=== PATIENT | female | born 2000 | race Caucasian/White ===

== ENCOUNTER → 2024-02-15 | Emergency (ER) | payer OTHER ==
[~2024-02-15] VITALS: Ht 167.6 cm; Wt 50.0 kg
[~2024-02-15] MED LIST: IBUP-2029 MT
[2024-02-15 13:46] VITALS: O2SAT 100
[2024-02-15 14:24] LABS: CLARITY URINE CLEAR (CLEAR); COLOR URINE YELLOW (YELLOW); GLUCOSE URINE NEGATIVE (NEGATIVE); KETONES URINE 3+ (NEGATIVE); LEUKOCYTE ESTERASE URINE NEGATIVE (NEGATIVE); NITRITE URINE NEGATIVE (NEGATIVE); OCCULT BLOOD URINE 2+ (NEGATIVE); PH URINE 7.5 (4.5-8.0); PROTEIN URINE NEGATIVE (NEGATIVE); SPECIFIC GRAVITY URINE 1.022 (1.005-1.030)
[2024-02-15 14:41] LABS: SQUAMOUS EPITHELIAL CELL URINE 2+ /lpf (RARE/1+)
[2024-02-15 14:42] LABS: MUCUS URINE 2+ /lpf (< = 2+)
[2024-02-15 14:43] LABS: BACTERIA URINE TRACE; WBC URINE 0-2 /hpf (0-2)
[2024-02-15 14:57] LABS: BASOPHILS % 0.5 % (0.0-2.0); CHLORIDE 104 mEq/L (98-107); EOSINOPHILS % 0.3 % (0.0-5.0); HEMATOCRIT. 42.1 % (36.0-48.0); HEMOGLOBIN. 14.2 g/dL (12.0-16.0); MEAN CORPUSCULAR HEMOGLOBIN 29.1 pg (28.0-32.0); MEAN CORPUSCULAR HGB CONC 33.6 g/dL (31.0-37.0); MEAN CORPUSCULAR VOLUME 86.5 fL (81.0-99.0); MEAN PLATELET VOLUME 7.7 fl (7.4-10.4); NEUTROPHILS % 80.2 % (40.0-76.0); PLATELET 238 x1000/uL (130-400); POTASSIUM 3.6 mEq/L (3.5-5.1); RED BLOOD CELL COUNT 4.87 mill/uL (4.2-5.4); RED CELL DISTRIBUTION WIDTH 13.7 % (11.6-14.6); SODIUM 138 mEq/L (136-145); WHITE BLOOD COUNT 11.8 x1000/uL (4.5-11.0)
[2024-02-15 14:58] LABS: CARBON DIOXIDE 27 mEq/L (21-32)
[2024-02-15 14:59] LABS: CALCIUM 9.6 mg/dL (8.7-10.4)
[2024-02-15 15:03] LABS: CREATININE 0.6 mg/dL (0.6-1.0)
[2024-02-15 15:04] LABS: GLUCOSE 86 mg/dL (70-105); UREA NITROGEN BLOOD 8 mg/dL (9-23)
[2024-02-15 15:12] LABS: HCG SCREEN NEGATIVE
[2024-02-15 18:39] VITALS: BP 101/54; PULSE 68; RESP 16; TEMP 36.83628; O2SAT 100
== END ==
LOC: ER 13:36
DX: N83.201 Unspecified ovarian cyst, right side (principal); Z98.890 Other specified postprocedural states
CPT/HCPCS: 36415; 74176; 76830; 76856; 80048; 81003; 84703; 85025; 86850; 86900; 99284